=== PATIENT | female | born 1960 | race Caucasian/White ===

== ENCOUNTER 2020-09-23 10:24 | Emergency (ER) | payer MEDICAID ==
[~2020-09-23] VITALS: Ht 149.9 cm; Wt 84.5 kg
[2020-09-23] MEDS ORDERED: ASPI-728 PO (10:31)
[2020-09-23] MEDS ORDERED: PENICILLIN PO (10:31)
[2020-09-23] MEDS ORDERED: NIFE60TA85 PO (10:31)
[2020-09-23 10:43] VITALS: BP 158/80
[2020-09-23 12:00] LABS: COVID AG,FIA SOURCE NASOPHARYNGEAL
== END 2020-09-23 13:08 | disposition home or self-care (01) ==
LOC: EMS 10:27
DX: Z20.822 Contact with and (suspected) exposure to COVID-19 (principal); I10 Essential (primary) hypertension
CPT/HCPCS: 87426; 99283

== ENCOUNTER 2020-09-26 13:53 | Emergency (ER) | payer MEDICAID ==
[~2020-09-26] VITALS: Ht 147.3 cm; Wt 84.1 kg
[~2020-09-26 13:53] MED LIST: ASPI-1450 PO; NIFE60TA85 PO; PENICILLIN PO
[2020-09-26 13:57] VITALS: BP 162/84
== END 2020-09-26 14:39 | disposition home or self-care (01) ==
LOC: EMS 13:55
DX: I10 Essential (primary) hypertension (principal); Z79.82 Long term (current) use of aspirin
CPT/HCPCS: 99281; Z7502

== ENCOUNTER 2020-10-24 19:59 | Emergency (ER) | payer MEDICAID ==
[~2020-10-24] VITALS: Ht 147.3 cm; Wt 84.5 kg
[2020-10-24 20:02] VITALS: BP 139/84
[2020-10-24 20:40] LABS: COVID AG,FIA SOURCE NASOPHARYNGEAL
== END 2020-10-24 20:28 | disposition home or self-care (01) ==
LOC: EMS 20:04
DX: Z20.822 Contact with and (suspected) exposure to COVID-19 (principal); I10 Essential (primary) hypertension; Z79.82 Long term (current) use of aspirin
CPT/HCPCS: 87426; 99283; C9803; U0003

== ENCOUNTER 2020-10-26 11:18 | Day surgery (SDC) | payer MEDICAID ==
[~2020-10-26] VITALS: Ht 147.3 cm; Wt 84.5 kg
[~2020-10-26 11:18] MED LIST changes: +SODIUM CHLORIDE 0.9% 0 ML ONE; +SODIUM CHLORIDE 0.9% 1,000 ML IV ONE
[2020-10-26] MEDS ORDERED: PROPOFOL 1% 20 ML VIAL IVP ONE (11:19)
[2020-10-26] MEDS ORDERED: ASPI-1450 PO (12:19)
[2020-10-26] MEDS ORDERED: LISI-893 PO (12:19)
[2020-10-27] MEDS ORDERED: SODIUM CHLORIDE 0.9% 1,000 ML IV ONE (12:10)
== END 2020-10-26 14:40 | disposition home or self-care (01) ==
LOC: SURGERY 11:18
PROVIDERS: ATTEND Internal Medicine Gastroenterology
DX: Z12.11 Encounter for screening for malignant neoplasm of colon (principal); K63.5 Polyp of colon; I10 Essential (primary) hypertension; K57.30 Diverticulosis of large intestine without perforation or abscess without bleeding; K64.8 Other hemorrhoids; Z79.899 Other long term (current) drug therapy; Z88.6 Allergy status to analgesic agent; Z98.890 Other specified postprocedural states
CPT/HCPCS: 45380; 88305; 93005; C1769; J2704; J7030

== ENCOUNTER 2021-04-03 13:53 | Emergency (ER) | payer MEDICAID ==
[~2021-04-03] VITALS: Ht 149.9 cm; Wt 83.6 kg
[~2021-04-03 13:53] MED LIST changes: +LISI-893 PO; -PENICILLIN PO; -SODIUM CHLORIDE 0.9% 0 ML ONE; -SODIUM CHLORIDE 0.9% 1,000 ML IV ONE
[2021-04-03 13:55] VITALS: BP 117/58
[2021-04-03] MEDS ORDERED: FERR-89 PO (16:18)
[2021-04-03] MEDS ORDERED: LOSA25TA21 PO (16:18)
[2021-04-03 16:50] LABS: HEMATOCRIT 40.4 % (36-46); LYMPHOCYTES # (AUTO) 1.6 K/uL (1.0-4.8); LYMPHOCYTES % (AUTO) 25.9 % (22.0-44.0); MEAN CORPUSCULAR HEMOGLOBIN 29.1 pg (26.0-34.0); MEAN CORPUSCULAR HGB CONC 32.3 G/dL (31.0-37.0); MEAN CORPUSCULAR VOLUME 90 fL (80-100); MONOCYTES # (AUTO) 0.4 K/uL (0.1-1.0); MONOCYTES % (AUTO) 6.6 % (2.0-9.0); NEUTROPHILS # (AUTO) 3.9 K/uL (1.8-7.7); NEUTROPHILS % (AUTO) 63.5 % (40.0-70.0); PLATELET COUNT (AUTO) 252 K/uL (150-450); RED BLOOD CELL COUNT(AUTO) 4.48 MIL/uL (4.00-5.20); RED CELL DISTRIBUTION WIDTH 14.2 % (11.5-14.5)
[2021-04-03 17:21] LABS: APPEARANCE,URINE CLEAR (CLEAR); BILIRUBIN,URINE NEGATIVE (NEGATIVE); GLUCOSE, URINE (UA) NEGATIVE (NEGATIVE); KETONES,URINE NEGATIVE (NEGATIVE); LEUKOCYTE ESTERASE ,URINE SMALL (NEGATIVE); NITRATE,URINE NEGATIVE (NEGATIVE); OCCULT BLOOD,URINE SMALL (NEGATIVE); PROTEIN,URINE NEGATIVE (NEGATIVE); UROBILINOGEN,URINE 0.2 mg/dL (<=1.0)
[2021-04-03 17:28] LABS: CALCIUM, TOTAL 8.5 mg/dL (8.8-10.5); CREATININE 0.94 mg/dL (0.60-1.30); POTASSIUM 3.9 mmol/L (3.5-5.1)
[2021-04-03 17:33] LABS: ALBUMIN 3.9 g/dL (3.4-5.0); BILIRUBIN,TOTAL 0.5 mg/dL (0.1-1.0); TOTAL PROTEIN, SERUM 7.8 g/dL (6.4-8.2)
[2021-04-03 17:55] LABS: BACTERIA,URINE None Seen /HPF (None Seen); RBC,URINE 0-2 /HPF (0-2); SQUAMOUS EPITHELIAL CELL,UR Few /LPF (None Seen); WBC,URINE 0-2 /HPF (0-5)
== END 2021-04-03 18:37 | disposition home or self-care (01) ==
LOC: EMS 14:14
DX: R30.0 Dysuria (principal); I10 Essential (primary) hypertension; M06.9 Rheumatoid arthritis, unspecified; Z79.899 Other long term (current) drug therapy
CPT/HCPCS: 80053; 81001; 83690; 85025; 99283

== ENCOUNTER 2021-07-05 09:01 | Emergency (ER) | payer MEDICAID ==
[~2021-07-05] VITALS: Ht 147.3 cm; Wt 85.0 kg
[~2021-07-05 09:01] MED LIST changes: -ASPI-1450 PO; +FERR-89 PO; -LISI-893 PO; +LOSA25TA21 PO
[2021-07-05 10:53] LABS: APPEARANCE,URINE CLOUDY (CLEAR); BILIRUBIN,URINE NEGATIVE (NEGATIVE); GLUCOSE, URINE (UA) NEGATIVE (NEGATIVE); KETONES,URINE NEGATIVE (NEGATIVE); LEUKOCYTE ESTERASE ,URINE LARGE (NEGATIVE); NITRATE,URINE NEGATIVE (NEGATIVE); OCCULT BLOOD,URINE LARGE (NEGATIVE); PH,URINE 6.5 (5.0-8.0); PROTEIN,URINE NEGATIVE (NEGATIVE); UROBILINOGEN,URINE 0.2 mg/dL (<=1.0)
[2021-07-05 11:03] LABS: BACTERIA,URINE None Seen /HPF (None Seen); RBC,URINE 51-100 /HPF (0-2); SQUAMOUS EPITHELIAL CELL,UR Few /LPF (None Seen)
[2021-07-05] MEDS ORDERED: PHENAZOPYRIDINE HCL 100 MG TABLET PO ONE (13:15)
[2021-07-05 13:16] VITALS: BP 140/78
== END 2021-07-05 14:09 | disposition home or self-care (01) ==
LOC: EMS 09:05
DX: R30.0 Dysuria (principal); R31.9 Hematuria, unspecified; I10 Essential (primary) hypertension; I00 Rheumatic fever without heart involvement; M06.9 Rheumatoid arthritis, unspecified; K28.9 Gastrojejunal ulcer, unspecified as acute or chronic, without hemorrhage or perforation
CPT/HCPCS: 76770; 81001; 87077; 87086; 87186; 99284; 99285; Z7502; Z7610